=== PATIENT | male | born 1955 | race Caucasian/White ===

== ENCOUNTER 2021-05-24 12:57 | Outpatient (CLI) | payer MEDICARE, OTHER, SELFPAY ==
[2021-05-24 13:25] VITALS: BP 129/83; PULSE 75; RESP 16; TEMP 36.6; O2SAT 96
[2021-05-24 14:35] VITALS: BP 122/80; PULSE 79; RESP 14; TEMP 36.7; O2SAT 97
== END 2021-05-24 12:58 | disposition home or self-care (01) ==
PROVIDERS: PCP Family Medicine; Visit Provider Nurse Practitioner
DX: U07.1 COVID-19 (principal)
CPT/HCPCS: 96365

== ENCOUNTER → 2024-03-30 10:53 | Outpatient (BNVA) | payer MEDICARE, OTHER, SELFPAY | PROVIDERS: PCP Family Medicine; Visit Provider Family Medicine | DX: Z00.00 Encounter for general adult medical examination without abnormal findings (principal); Z13.6 Encounter for screening for cardiovascular disorders | CPT/HCPCS: 80053; 80061 ==

== ENCOUNTER → 2025-06-08 11:18 | Outpatient (BNVA) | payer MEDICARE, OTHER, SELFPAY | PROVIDERS: PCP Family Medicine; Visit Provider Family Medicine | DX: Z00.00 Encounter for general adult medical examination without abnormal findings (principal); I50.9 Heart failure, unspecified; I42.9 Cardiomyopathy, unspecified; Z95.810 Presence of automatic (implantable) cardiac defibrillator; E03.9 Hypothyroidism, unspecified | CPT/HCPCS: 80053; 80061; 82306; 82607; 84443; 85025 ==